=== PATIENT | male | born 1970 | race Caucasian/White ===

== ENCOUNTER 2018-11-17 06:02 | Emergency (ER) | payer OTHER ==
[~2018-11-17] VITALS: Ht 188 cm; Wt 93.0 kg
[~2018-11-17 06:02] MED LIST: AC500T PO; BPR100T GT; CYCL10TA9 PO; ESCT10T PO; HYDR-3720 PO; HYDR1CAP2 PO; METH4TAB PO; MULT1CAP17 PO; NAPR220T76 PO; TRAM-21
[2018-11-17] MEDS ORDERED: ONDANSETRON 4 MG/2 ML (SDV) Z0FRAN IVP ONE (06:45)
[2018-11-17] MEDS ORDERED: FAMOTIDINE 20MG/2ML IV (PEPCID) IVP ONE (06:45)
[2018-11-17] MEDS ORDERED: KETOROLAC 30 MG/ML VIAL IVP ONE (06:45)
--- NOTE | 2018-11-17 06:48 | ED Abdominal Pain ---
General Chief Complaint: Abdominal/GI Problems Stated Complaint: VOMITING Nursing Triage Note: Pt arrived by private vehicle for cc of vomiting and diarrhea with abdominal pain. Pt stated it started around 0300 and he does not believe he has the flu. He stated that he thinks it is his colon. He stated it is hard to breathe. Pt has been vomiting 6-7 times. He stated he had diarrhea before. Sepsis Screen: No Definite Risk Source of Information: Patient, Spouse Exam Limitations: No Limitations History of Present Illness Date Seen by Provider: Nov 17, 2018 Time Seen by Provider: 06:30 Initial Comments Patient presents to ER by private conveyance with his significant other and chief complaint that he was woke up from sleep with some moderate to severe epigastric abdominal pain right down the midline. He felt like it was acid reflux which took some antacids but that did not help. He then took some charcoal gas tablets but that also did not help within the last couple hours she started having vomiting. He says he is vomiting up food that was undigested from yesterday. He's had no fevers chills is not having much nausea right now. She says the pain and discomfort in his epigastric region that radiates down the midline. He has had a back laminectomy but no other abdominal surgeries. No recent trauma. No sick contacts. A little bit of loose stools but this is not unusual for him. He has been having loose stools for years and recently he started working this up with his primary care doctor and has an appointment on the with Dr. Lake to talk about doing some endoscopy. No history of endoscopy, irritable bowel or inflammatory bowel disease. No black tarry stools or history of gastric ulcers that he is aware of. Allergies and Home Medications Allergies Coded Allergies: Penicillins (Unverified Allergy, 06/30/10) Home Medications Cyclobenzaprine Hcl 10 Mg Tablet, 10 MG PO TID, (Reported) Hydrocodone Bit/Acetaminophen 1 Each Tablet, 2 EACH PO Q4H PRN, (Reported) Methylprednisolone 4 Mg/Dose-Pack Tab.ds.pk, 0 PO DIRECTED, (Reported) Multivitamins/Minerals 1 Cap Capsule, 1 CAP PO PRN, (Reported) Patient Home Medication List Home Medication List Reviewed: Yes Review of Systems Review of Systems Constitutional: No chills, No malaise EENTM: No Blurred Vision, No Double Vision Respiratory: Denies Cough, Denies Shortness of Air Cardiovascular: Denies Chest Pain, Denies Lightheadedness Gastrointestinal: See HPI, Abdominal Pain; Denies Constipated; Diarrhea, Nausea , Vomiting Genitourinary: Denies Burning, Denies Discharge Musculoskeletal: No back pain, No joint pain Skin: No pruritus, No rash Past Wbbwkvw-Yqaxcx-Hbbdbh Hx Patient Social History Alcohol Use: Occasionally Uses Recreational Drug Use: No Smoking Status: Never a Smoker 2nd Hand Smoke Exposure: No Recent Foreign Travel: No Contact w/Someone Who Travel: No Recent Infectious Disease Expo: No Recent Hopitalizations: No Physical Abuse: No Sexual Abuse: No Mistreated: No Fear: No Seasonal Allergies Seasonal Allergies: No Past Medical History Surgeries: Yes (laminectomy/discectomy) Respiratory: No Cardiac: No Neurological: No Reproductive Disorders: No Gastrointestinal: Yes (verbalizes IBS) Musculoskeletal: No Endocrine: No Psychosocial: No Blood Disorders: No Physical Exam Vital Signs Vital Signs - First Documented 11/17/18 06:19 Temp 97.2 Pulse 55 Resp 33 B/P (MAP) 172/106 (128) Pulse Ox 100 O2 Delivery Room Air Capillary Refill : Less Than 3 Seconds Height/Weight/BMI Height: 6'2.00" Weight: 205lbs. 0oz. 92.943031ab; BMI Method:Stated General Appearance: WD/WN, no apparent distress HEENT: PERRL/EOMI, normal ENT inspection, pharynx normal (mmm) Respiratory: no respiratory distress, no accessory muscle use Cardiovascular: normal peripheral pulses, regular rate, rhythm Peripheral Pulses: 2+ Radial Pulses (R), 2+ Radial Pulses (L) Gastrointestinal: normal bowel sounds, soft, no organomegaly, other (negative for Ramos sign or McBurney's point tenderness. Epigastric and periumbilical discomfort to palpation. No organomegaly.) Neurologic/Psychiatric: alert, oriented x 3 Skin: normal color, warm/dry Progress/Results/Core Measures Results/Orders Lab Results Laboratory Tests Test 11/17/18 06:19 Range/Units White Blood Count 7.5 4.3-11.0 10^3/uL Red Blood Count 4.80 4.35-5.85 10^6/uL Hemoglobin 14.2 13.3-17.7 G/DL Hematocrit 41 40-54 % Mean Corpuscular Volume 85 80-99 FL Mean Corpuscular Hemoglobin 30 25-34 PG Mean Corpuscular Hemoglobin Concent 35 32-36 G/DL Red Cell Distribution Width 12.7 10.0-14.5 % Platelet Count 394 130-400 10^3/uL Mean Platelet Volume 9.1 7.4-10.4 FL Neutrophils (%) (Auto) 44 42-75 % Lymphocytes (%) (Auto) 48 H 12-44 % Monocytes (%) (Auto) 6 0-12 % Eosinophils (%) (Auto) 1 0-10 % Basophils (%) (Auto) 0 0-10 % Neutrophils # (Auto) 3.3 1.8-7.8 X 10^3 Lymphocytes # (Auto) 3.6 1.0-4.0 X 10^3 Monocytes # (Auto) 0.5 0.0-1.0 X 10^3 Eosinophils # (Auto) 0.1 0.0-0.3 10^3/uL Basophils # (Auto) 0.0 0.0-0.1 10^3/uL Sodium Level 139 135-145 MMOL/L Potassium Level 4.3 3.6-5.0 MMOL/L Chloride Level 105 98-107 MMOL/L Carbon Dioxide Level 23 21-32 MMOL/L Anion Gap 11 5-14 MMOL/L Blood Urea Nitrogen 19 H 7-18 MG/DL Creatinine 1.18 0.60-1.30 MG/DL Estimat Glomerular Filtration Rate > 60 BUN/Creatinine Ratio 16 Glucose Level 141 H 70-105 MG/DL Calcium Level 9.7 8.5-10.1 MG/DL Corrected Calcium 9.4 8.5-10.1 MG/DL Magnesium Level 2.3 1.8-2.4 MG/DL Total Bilirubin 0.6 0.1-1.0 MG/DL Aspartate Amino Transf (AST/SGOT) 26 5-34 U/L Alanine Aminotransferase (ALT/SGPT) 27 0-55 U/L Alkaline Phosphatase 58 40-136 U/L C-Reactive Protein High Sensitivity 0.12 0.00-0.50 MG/DL Total Protein 7.5 6.4-8.2 GM/DL Albumin 4.4 3.2-4.5 GM/DL Micro Results Microbiology 11/17/18 Influenza Types A,B Antigen (LAURI) - Final, Complete My Orders Orders - QUE VILLASENOR Cbc With Automated Diff (11/17/18 06:35) Comprehensive Metabolic Panel (11/17/18 06:35) Magnesium (11/17/18 06:35) Influenza A And B Antigens (11/17/18 06:35) Abdomen/Kub 1view (11/17/18 06:35) Hs C Reactive Protein (11/17/18 06:35) Ketorolac Injection (Toradol Injection) (11/17/18 06:45) Famotidine Injection (Pepcid Injection) (11/17/18 06:45) Ondansetron Injection (Zofran Injectio (11/17/18 06:45) Medications Given in ED Current Medications Medications Dose Ordered Sig/Jose Route Start Time Stop Time Status Last Admin Dose Admin Famotidine 20 mg ONCE ONCE IVP 11/17/18 06:45 11/17/18 06:46 DC 11/17/18 06:57 20 MG Ketorolac Tromethamine 30 mg ONCE ONCE IVP 11/17/18 06:45 11/17/18 06:46 DC 11/17/18 06:57 30 MG Ondansetron HCl 4 mg ONCE ONCE IVP 11/17/18 06:45 11/17/18 06:46 DC 11/17/18 06:57 4 MG Vital Signs/I&O 11/17/18 06:19 Temp 97.2 Pulse 55 Resp 33 B/P (MAP) 172/106 (128) Pulse Ox 100 O2 Delivery Room Air Blood Pressure Mean: 128 Progress Progress Note #1: Time: 06:48 Progress Note Suspect gastroenteritis viral versus gastritis versus PUD versus possible ileus. We'll obtain a flat plate film, labs. We have offered some NSAIDs, antacids IV and Zofran for symptom relief. Recommended his symptoms under control or if his labs are unrevealing and no further CT would be necessary and have be reasonable for him to follow up get his endoscopy done. Progress Note #2: Time: 09:10 Progress Note The patient's symptoms have abated. He's feeling better labs are okay vitals are okay his belly is not acute surgically. We'll allow him to go home and take care of his gastritis with antacids and keep his follow-up in a week and a half with Dr. Lake. Diagnostic Imaging Diagonstic Imaging: Xray Plain Films/CT/US/NM/MRI: abdomen (KUB 1 view) Comments [facility], [place] NAME: [facility] REC#: [id number] PT STATUS: REG ER : 1970 PHYSICIAN: QUE VILLASENOR MD ADMIT DATE: 11/17/18/ER Draft Date of Exam:11/17/18 ABDOMEN/KUB 1VIEW PATIENT HISTORY: Vomiting and diarrhea with abdominal pain. TECHNIQUE: Frontal view of the abdomen COMPARISON: None FINDINGS: Bowel loops are nondistended without evidence of obstruction. No large collection of free air seen. There is a small amount of stool seen in the colon. No acute osseous abnormality is seen. Phleboliths are noted in the pelvis. IMPRESSION: No evidence of bowel obstruction or large collection of free air. Dictated on workstation # [id number] Dict: 11/17/18814 Trans: 11/17/18817 [facility] [id number] Interpreted by: GINA HILL MD Electronically signed by: Reviewed: Reviewed by Me Departure Impression Primary Impression: Gastritis Qualified Codes: K29.70 - Gastritis, unspecified, without bleeding Disposition: HOME, SELF-CARE Condition: Stable Departure-Patient Inst. Decision time for Depature: 09:10 Referrals: RADHA SCHULTE DO (PCP/Family) Primary Care Physician Patient Instructions: Gastritis (DC) Add. Discharge Instructions: You need to complete your endoscopy outpatient with Dr. Lake as per your previous plan. Drink plenty of fluids and avoid high acidic or spicy foods. Start taking an antacid daily such as omeprazole 40 mg a day or Zantac/Pepcid twice a day. If you have nausea feeling like you are going to throw up then take one tablet of Zofran every 6 hours as needed. If you have pain you can use Tylenol 1000 g every 8 hours and/or ibuprofen 800 mg 8 hours. All discharge instructions reviewed with patient and/or family. Voiced understanding. Scripts Ondansetron (Ondansetron Odt) 4 Mg Tab.rapdis 4 MG PO Q6H PRN for NAUSEA/VOMITING, #12 TAB 0 Refills Prov: QUE VILLASENOR 11/17/18 QUE VILLASENOR Nov 17, 2018 06:48
[2018-11-17 06:53] LABS: BASOPHILS % (AUTO) 0 % (0-10); EOSINOPHILS # (AUTO) 0.1 10^3/uL (0.0-0.3); EOSINOPHILS % (AUTO) 1 % (0-10); HEMATOCRIT 41 % (40-54); HEMOGLOBIN 14.2 G/DL (13.3-17.7); LYMPHOCYTES # (AUTO) 3.6 X 10^3 (1.0-4.0); LYMPHOCYTES % (AUTO) 48 % (12-44); MEAN CORPUSCULAR HEMOGLOBIN 30 PG (25-34); MEAN CORPUSCULAR HGB CONC 35 G/DL (32-36); MEAN CORPUSCULAR VOLUME 85 FL (80-99); MEAN PLATELET VOLUME 9.1 FL (7.4-10.4); MONOCYTES # (AUTO) 0.5 X 10^3 (0.0-1.0); MONOCYTES % (AUTO) 6 % (0-12); NEUTROPHILS # (AUTO) 3.3 X 10^3 (1.8-7.8); NEUTROPHILS % (AUTO) 44 % (42-75); PLATELET COUNT 394 10^3/uL (130-400); RED CELL DISTRIBUTION WIDTH 12.7 % (10.0-14.5); WHITE BLOOD COUNT 7.5 10^3/uL (4.3-11.0)
[2018-11-17 07:05] LABS: ALANINE AMINOTRANSFERASE 27 U/L (0-55); ALBUMIN 4.4 GM/DL (3.2-4.5); ALKALINE PHOSPHATASE 58 U/L (40-136); BILIRUBIN,TOTAL 0.6 MG/DL (0.1-1.0); BUN/CREATININE RATIO 16; CALCIUM 9.7 MG/DL (8.5-10.1); CARBON DIOXIDE 23 MMOL/L (21-32); CHLORIDE 105 MMOL/L (98-107); CREATININE SERUM 1.18 MG/DL (0.60-1.30); GFR ESTIMATED > 60; GLUCOSE 141 MG/DL (70-105); MAGNESIUM 2.3 MG/DL (1.8-2.4); POTASSIUM 4.3 MMOL/L (3.6-5.0); SODIUM 139 MMOL/L (135-145); TOTAL PROTEIN 7.5 GM/DL (6.4-8.2)
--- NOTE | 2018-11-17 07:06 | NUR ---
Report was given to Haley at this time. Care was transferred.
--- OUTSIDE RECORDS SUMMARY | 2018-11-17 07:48 | XMS REPORT | Continuity of Care Document ---
Author Author [facility] Organization [facility] Address Unknown Phone Unavailable Allergies Active Description Code Type Severity Reaction Onset Reported/Identified Relationship to Patient Clinical Status Yes Penicillins [id number] Drug Allergy Unknown N/A 06/30/2010 Medications There is no data. Problems Date Dx Coded Attending Type Code Diagnosis Diagnosed By 11/29/2015 RADHA SALINAS DO Ot M51.36 06/24/2016 RADHA SALINAS DO Ot M51.36 OTHER INTERVERTEBRAL DISC DEGENERATION, Procedures There is no data. Results Test Result Range Comprehensive metabolic panel - 11/17/18 06:19 Serum or plasma sodium measurement (moles/volume) 139 mmol/L 135-145 Serum or plasma potassium measurement (moles/volume) 4.3 mmol/L 3.6-5.0 Serum or plasma chloride measurement (moles/volume) 105 mmol/L 98-107 Carbon dioxide 23 mmol/L 21-32 Serum or plasma anion gap determination (moles/volume) 11 mmol/L 5-14 Serum or plasma urea nitrogen measurement (mass/volume) 19 mg/dL 7-18 Serum or plasma creatinine measurement (mass/volume) 1.18 mg/dL 0.60-1.30 Serum or plasma urea nitrogen/creatinine mass ratio 16 NRG Serum or plasma creatinine measurement with calculation of estimated glomerular filtration rate > NRG Serum or plasma glucose measurement (mass/volume) 141 mg/dL 70-105 Serum or plasma calcium measurement (mass/volume) 9.7 mg/dL 8.5-10.1 Serum or plasma total bilirubin measurement (mass/volume) 0.6 mg/dL 0.1-1.0 Serum or plasma alkaline phosphatase measurement (enzymatic activity/volume) 58 U/L 40-136 Serum or plasma aspartate aminotransferase measurement (enzymatic activity/ volume) 26 U/L 5-34 Serum or plasma alanine aminotransferase measurement (enzymatic activity/volume ) 27 U/L 0-55 Serum or plasma protein measurement (mass/volume) 7.5 g/dL 6.4-8.2 Serum or plasma albumin measurement (mass/volume) 4.4 g/dL 3.2-4.5 CALCIUM CORRECTED 9.4 mg/dL 8.5-10.1 Magnesium - 11/17/18 06:19 Magnesium 2.3 mg/dL 1.8-2.4 Serum or plasma C reactive protein measurement (mass/volume) - 11/17/18 06:19 Serum or plasma C reactive protein measurement (mass/volume) 0.12 mg /dL 0.00-0.50 Complete blood count (CBC) with automated white blood cell (WBC) differential - 11/17/18 06:19 Blood leukocytes automated count (number/volume) 7.5 10*3/uL 4.3-11.0 Blood erythrocytes automated count (number/volume) 4.80 10*6/uL 4.35-5.85 Venous blood hemoglobin measurement (mass/volume) 14.2 g/dL 13.3-17.7 Blood hematocrit (volume fraction) 41 % 40-54 Automated erythrocyte mean corpuscular volume 85 [foz_us] 80-99 Automated erythrocyte mean corpuscular hemoglobin (mass per erythrocyte) 30 pg 25-34 Automated erythrocyte mean corpuscular hemoglobin concentration measurement ( mass/volume) 35 g/dL 32-36 Automated erythrocyte distribution width ratio 12.7 % 10.0-14.5 Automated blood platelet count (count/volume) 394 10*3/uL 130-400 Automated blood platelet mean volume measurement 9.1 [foz_us] 7.4-10.4 Automated blood neutrophils/100 leukocytes 44 % 42-75 Automated blood lymphocytes/100 leukocytes 48 % 12-44 Blood monocytes/100 leukocytes 6 % 0-12 Automated blood eosinophils/100 leukocytes 1 % 0-10 Automated blood basophils/100 leukocytes 0 % 0-10 Blood neutrophils automated count (number/volume) 3.3 10*3 1.8-7.8 Blood lymphocytes automated count (number/volume) 3.6 10*3 1.0-4.0 Blood monocytes automated count (number/volume) 0.5 10*3 0.0-1.0 Automated eosinophil count 0.1 10*3/uL 0.0-0.3 Automated blood basophil count (count/volume) 0.0 10*3/uL 0.0-0.1 Influenza virus A and B antigen detection - 11/17/18 06:21 FLU RESULT NEGATIVE FOR INFLUENZA A AND B ANTIGENS BY IA NRG Encounters ACCT No. Visit Date/Time Discharge Status Pt. Type Provider Facility Loc./Unit Complaint [id number] 11/17/2015 08:55:00 11/17/2015 23:59:59 CLS Outpatient RADHA SALINAS DO [facility] RAD LUMBAR DISC DISEASE [id number] 10/20/2013 09:43:00 10/20/2013 23:59:59 CLS Outpatient [id number] 11/17/2018 06:04:00 ACT Emergency JACKLYN DUARTE, QUE [place] [facility] ER VOMITING 05/25/16 11/11/2018 16:24:05 11/11/2018 23:59:59 CLS Outpatient Radha Salinas
--- NOTE | 2018-11-17 07:51 | NUR ---
INTRODUCED SELF TO PT. PT REQUEST HOT TEA. NOTIFIED DR DID NOT WANT HIM TO HAVE ANYTHING UNTIL THE RADIOLOGY REPORT
--- NOTE | 2018-11-17 08:18 | Diagnostic Imaging Report ---
PATIENT HISTORY: Vomiting and diarrhea with abdominal pain. TECHNIQUE: Frontal view of the abdomen COMPARISON: None FINDINGS: Bowel loops are nondistended without evidence of obstruction. No large collection of free air seen. There is a small amount of stool seen in the colon. No acute osseous abnormality is seen. Phleboliths are noted in the pelvis. IMPRESSION: No evidence of bowel obstruction or large collection of free air. Dictated by: Dictated on workstation # [id number]
--- NOTE | 2018-11-17 09:03 | NUR ---
NOTIFIED WE WERE WAITING ON DR TO LOOK AT RESULTS. WARM BLANKETS GIVEN TO HIM AND FAMILY. DENIES NEEDS AT THIS TIME
[2018-11-17] MEDS ORDERED: ONDA4TAB11 PO (09:12)
[2018-11-17 09:20] VITALS: BP 109/83
== END 2018-11-17 09:20 | disposition home or self-care (01) ==
LOC: EDUNIT# 06:02 → ER 06:04
DX: K29.70 Gastritis, unspecified, without bleeding (principal); K58.9 Irritable bowel syndrome, unspecified; Z88.0 Allergy status to penicillin; Z79.52 Long term (current) use of systemic steroids; Z98.1 Arthrodesis status
CPT/HCPCS: 36415; 74018; 80053; 83735; 85025; 86141; 87804

== ENCOUNTER → 2018-12-08 | Outpatient (CLI) | payer OTHER ==
[~2018-12-08] MED LIST changes: +ONDA4TAB11 PO
== END | disposition home or self-care (01) ==
LOC: PREOP 06:21
PROVIDERS: ATTEND Internal Medicine
DX: Z01.818 Encounter for other preprocedural examination (principal)

== ENCOUNTER 2018-12-11 08:01 | Day surgery (SDC) | payer OTHER ==
--- NOTE | 2018-12-07 17:26 | HISTORY AND PHYSICAL ---
DATE OF SERVICE: PANENDOSCOPY HISTORY AND PHYSICAL HISTORY OF PRESENT ILLNESS: The patient is a 48-year-old white male who referred by Dr. Salinas for diagnostic EGD and screening colonoscopy. The patient has had several episodes of severe precordial chest discomfort radiate through to his back with sensation of dysphagia. It last occurred on the 15th of this month with pain severe enough that he presented to the emergency room. Blood testing and EKG evaluation were unremarkable. He did receive a GI cocktail with some improvement in his symptoms. Blood testing including a CBC, chemistry panel and CRP levels were unremarkable except for a mildly elevated nonfasting sugar of 141. Hemoglobin was 14.2 with a white count of 7,000 and a platelet count of 394,000. The patient has had several other episodes that some of which have occurred around eating. He stated that he had pizza that night, but he did not feel as though at that episode it was sticking at that time, but reports he brought up what he felt to be a pizza that was not terribly digested some 3 or 4 hours later. He has had no weight loss. Denies melena, bright red blood per rectum. He has had a long history of postprandial defecation, certain foods are worse especially onions the first time it happened was 15 years ago after having a bunion blossom at a local restaurant. He is not aware of any family history for inflammatory bowel disease and he has never noted any blood in his stool. He reports that his weight has been stable. PAST MEDICAL HISTORY: He reports is unremarkable. He is not taking any regular medication. PAST SURGICAL HISTORY: He had an L5 diskectomy in 2009, which has controlled his back pain symptoms. FAMILY HISTORY: Father is living at the age of 74. No known health problems. Mother living at age 72 of symptoms, it sounds suspicious for irritable bowel syndrome. No family history for colon cancer, polyps or inflammatory bowel disease that he is aware of. 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 He has no past smoking history with only occasional social alcohol intake. He has had no recent travel history. REVIEW OF SYSTEMS: CONSTITUTIONAL: No night sweats, chills, fever, malaise reported. RESPIRATORY: Denies cough, shortness of breath. CARDIOVASCULAR: He has had no chest pain since his emergency room visits. He has had no palpitations, syncope, dyspnea on exertion or at rest. GASTROINTESTINAL: As per HPI. GENITOURINARY: He denies discharge, increase in urinary frequency or flank pain. PHYSICAL EXAMINATION: GENERAL: Reveals white male who appears to be in no acute distress. VITAL SIGNS: Weight is 213.4 pounds, initial blood pressure 150/100, at the end of the interview 130/86. HEENT: Unremarkable. He is a Mallampati class 1 oropharyngeal configuration. No erythema is noted. NECK: Revealed no JVD, adenopathy or bruits. CHEST: Clear to auscultation. CARDIOVASCULAR: Reveals a regular rate and rhythm without murmur, S3 or S4. ABDOMEN: Soft, supple without mass, organomegaly or tenderness. EXTREMITIES: Reveal no cyanosis, clubbing or edema. ASSESSMENT AND PLAN: The patient was set up for screening colonoscopy and diagnostic EGD due to dysphagia and chest pain on 12/11. Prep instructions with Suprep kit were given and questions were answered. Electronic medical record was reviewed. Forty-five minutes of my personal care time has been spent and in another 10 minutes of staff time going over prep instructions and answering questions. I thank you for the referral of this pleasant gentleman. Job ID: [id number] DocumentID: [id number] Dictated Date: 12/02/2018 17:17:27 Auto Former Machine Operator Date: 12/02/2018 18:10:29 Dictated By: LAMAR MORALES MD [facility]
[~2018-12-11] VITALS: Ht 188 cm; Wt 93.0 kg
[2018-12-11 08:10] VITALS: BP 131/80
[2018-12-11] MEDS ORDERED: D5 LR IV SOLUTION 1,000 ML IV STA (08:13)
[2018-12-11] MEDS ORDERED: HURRICAINE EXT TUBE (BENZOCAINE) XX PRN (08:15)
[2018-12-11] MEDS ORDERED: LIDOCAINE JELLY 2% 6 ML SYRINGE MM PRN (08:15)
[2018-12-11] MEDS ORDERED: MIDAZOLAM 2 MG/2 ML (VERSED) VIAL IVP ONE (08:15)
[2018-12-11] MEDS ORDERED: fentaNYL INJECTION 100 MCG/2 ML AMP IVP ONE (08:15)
[2018-12-11] MEDS ORDERED: D5 LR IV SOLUTION 1,000 ML IV ONE (08:32)
--- NOTE | 2018-12-11 08:51 | Pre-Op Note & Conscious Sedat ---
Pre-Operative Progress Note H&P Reviewed The H&P was reviewed, patient examined and no changes noted. Date H&P Reviewed: Dec 11, 2018 Time H&P Reviewed: 07:45 Conscious Sedation Pre-Proced ASA Score 2 For ASA 3 and 4: Consider anesthesia and medical clearance. Also, for patients with a history of failed moderate sedation consider anesthesia. Airway Lungs Heart ASA score ASA 1: a normal healthy patient ASA 2: a patient with a mild systemic disease (mid diabetes, controlled hypertension, obesity ASA 3: a patient with a severe systemic disease that limits activity (angina , COPD, prior Myocardial infarction) ASA 4: a patient with an incapacitating disease that is a constant threat to life (CHF, renal failure) ASA 5: a moribund patient not expected to survive 24 hrs. (ruptured aneurysm) ASA 6: a declared brain- patient whose organs are being harvested. For emergent operations, add the letter E after the classification Mallampati Classification Grade 1 Sedation Plan Analgesia, Amnesia, Plan communicated to team members, Discussed options with patient/fam, Discussed risks with patient/fam The patient is an appropriate candidate to undergo the planned procedure, sedation, and anesthesia. The patient immediately re-assessed prior to indication. LAMAR MORALES MD Dec 11, 2018 08:51
[2018-12-11] MEDS ORDERED: MIDAZOLAM 2 MG/2 ML (VERSED) VIAL ONE ×3 (09:03)
[2018-12-11] MEDS ORDERED: fentaNYL INJECTION 100 MCG/2 ML AMP ONE ×2 (09:04)
[2018-12-11] MEDS ORDERED: LIDOCAINE JELLY 2% 6 ML SYRINGE ONE (09:04)
[2018-12-11] MEDS ORDERED: HURRICAINE EXT TUBE (BENZOCAINE) ONE (09:04)
[2018-12-11] MEDS ORDERED: SIMETHICONE 40 MG/0.6 ML (MYLICON DROPS) 30 ML BTL ONE (09:37)
[2018-12-11] MEDS ORDERED: SIMETHICONE 40 MG/0.6 ML (MYLICON DROPS) 30 ML BTL PO PRN ×2 (09:45→12:15)
[2018-12-11 10:25] VITALS: BP 129/80
[2018-12-11 10:55] VITALS: BP 121/82
--- OUTSIDE RECORDS SUMMARY | 2018-12-11 12:27 | XMS REPORT | Continuity of Care Document ---
Author Author [facility] Organization [facility] Address Unknown Phone Unavailable Allergies Active Description Code Type Severity Reaction Onset Reported/Identified Relationship to Patient Clinical Status Yes Penicillins [id number] Drug Allergy Unknown N/A 06/30/2010 Medications There is no data. Problems Date Dx Coded Attending Type Code Diagnosis Diagnosed By 11/29/2015 RADHA SALINAS DO Ot M51.36 06/24/2016 RADHA SALINAS DO Ot M51.36 OTHER INTERVERTEBRAL DISC DEGENERATION, 11/17/2018 QUE VILLASENOR MD Ot K29.70 GASTRITIS, UNSPECIFIED, WITHOUT BLEEDING 11/17/2018 QUE VILLASENOR MD Ot K58.9 IRRITABLE BOWEL SYNDROME WITHOUT DIARRHE 11/17/2018 QUE VILLASENOR MD Ot R10.13 EPIGASTRIC PAIN 11/17/2018 QUE VILLASENOR MD Ot Z79.52 CORRECTION (CURRENT) USE OF SYSTEMIC STER 11/17/2018 QUE VILLASENOR MD Ot Z88.0 ALLERGY STATUS TO PENICILLIN 11/17/2018 QUE VILLASENOR MD Ot Z98.1 ARTHRODESIS STATUS 11/19/2018 QUE VILLASENOR MD Ot K29.70 GASTRITIS, UNSPECIFIED, WITHOUT BLEEDING 11/19/2018 QUE VILLASENOR MD Ot K58.9 IRRITABLE BOWEL SYNDROME WITHOUT DIARRHE 11/19/2018 QUE VILLASENOR MD Ot R10.13 EPIGASTRIC PAIN 11/19/2018 QUE VILLASENOR MD Ot Z79.52 CORRECTION (CURRENT) USE OF SYSTEMIC STER 11/19/2018 QUE VILLASENOR MD Ot Z88.0 ALLERGY STATUS TO PENICILLIN 11/19/2018 QUE VILLASENOR MD Ot Z98.1 ARTHRODESIS STATUS 11/23/2018 QUE VILLASENOR MD Ot K29.70 GASTRITIS, UNSPECIFIED, WITHOUT BLEEDING 11/23/2018 QUE VILLASENOR MD Ot K58.9 IRRITABLE BOWEL SYNDROME WITHOUT DIARRHE 11/23/2018 QUE VILLASENOR MD Ot R10.13 EPIGASTRIC PAIN 11/23/2018 QUE VILLASENOR MD Ot Z79.52 CORRECTION (CURRENT) USE OF SYSTEMIC STER 11/23/2018 QUE VILLASENOR MD Ot Z88.0 ALLERGY STATUS TO PENICILLIN 11/23/2018 QUE VILLASENOR MD, Ot Z98.1 ARTHRODESIS STATUS 12/07/2018 RADHA SALINAS DO, Ot M51.36 OTHER INTERVERTEBRAL DISC DEGENERATION, 12/09/2018 LAMAR MORALES MD, Ot Z01.818 ENCOUNTER FOR OTHER PREPROCEDURAL EXAMIN 12/11/2018 RADHA SALINAS DO, Ot M51.36 OTHER INTERVERTEBRAL DISC DEGENERATION, 12/11/2018 LAMAR MORALES MD, Ot Z01.818 ENCOUNTER FOR OTHER PREPROCEDURAL EXAMIN Procedures There is no data. Results Test [...] Status Pt. Type Provider Facility Loc./Unit Complaint [id number] 12/08/2018 06:21:00 12/08/2018 23:59:59 CLS Outpatient LAMAR MORALES MD [facility] PREOP COLONOSCOPY/EGD [id number] 11/17/2018 06:04:00 11/17/2018 09:20:00 DIS Emergency QUE VILLASENOR MD [facility] ER VOMITING [id number] 11/17/2015 08:55:00 11/17/2015 23:59:59 CLS Outpatient RADHA SALINAS DO [facility] RAD LUMBAR DISC DISEASE [id number] 10/20/2013 09:43:00 10/20/2013 23:59:59 CLS Outpatient [id number] 12/11/2018 08:01:00 ACT Outpatient LAMAR MORALES MD [facility] ENDO SCREENING/DYSPHAGIA 05/25/16 11/11/2018 16:24:05 11/11/2018 23:59:59 CLS Outpatient Radha Salinas
--- NOTE | 2018-12-11 21:52 | OPERATIVE REPORT ---
DATE OF SERVICE: PANENDOSCOPY SUMMARY INDICATION FOR THE PROCEDURE: The patient underwent screening colonoscopy and diagnostic EGD due to history of intermittent dysphagia. The patient was placed in the left lateral decubitus position. Prior to undergoing colonoscopy, digital rectal evaluation was performed. Anal sphincter tone was normal. The prostate was normal in size, anodular, nontender to digital inspection. No abnormalities, no additional inspection of anal canal or distal rectal vault. The colonoscope was then inserted into the rectum under direct visualization, advanced to cecum. The cecum was identified by identification of the ileocecal valve and cecal strap. Photographic documentation was obtained. Careful inspection was made as the colonoscope was withdrawn. The quality of prep was good. FINDINGS: There was no evidence for internal or external hemorrhoids. Present in the rectosigmoid junction was a diminutive hyperplastic appearing polyp. It was photographed and biopsied and ablated and submitted for histopathology. Mild diverticular disease confined to the sigmoid colon was present with no evidence for diverticulitis. No other sigmoid colonic abnormalities were appreciated. The descending colon, splenic flexure, transverse colon, hepatic flexure, ascending colon and cecum were unremarkable. ASSESSMENT: 1. Mild diverticular disease confined to the sigmoid colon was present without evidence for diverticulitis. 2. One diminutive hyperplastic appearing polyp was removed via hot forceps from the rectosigmoid junction. As long as there is no surprise on histopathology report, would advocate consideration for repeat screening colonoscopy in 10 years as long as there continues to be no known family history for colon cancer. We then proceeded with EGD evaluation. The endoscope was inserted in the oral cavity and under direct visualization, esophagus was intubated. The endoscope was passed down the esophagus through the stomach and second portion of the duodenum. Careful inspection was made as the endoscope was withdrawn. The patient tolerated the procedure well. FINDINGS: The esophagus was unremarkable. There is no evidence for rings, webs, strictures, Rodriguez's change or extrinsic compression and there was no furrowing to suggest eosinophilic esophagitis. A biopsy was obtained from the distal esophagus for histopathology as well as eosinophilic count evaluation. There was no evidence for hiatal hernia formation. The cardia, fundus and antrum of the stomach were unremarkable. The pylorus, pyloric channel, the duodenal bulb and second portion of the duodenum were unremarkable as well. ASSESSMENT: Normal EGD suggesting intermittent dysphagia secondary to esophageal spasm. While he did not have any visible findings to suggest eosinophilic esophagitis, a biopsy was obtained from the distal esophagus for evaluation with further recommendations to follow if abnormalities are noted. Otherwise, the patient was reassured. I thank you for the referral of this pleasant gentleman. Job ID: [id number] DocumentID: [id number] Dictated Date: 12/11/2018 11:08:33 Senior Bioinformatics Scientist Date: 12/11/2018 21:52:19 Dictated By: LAMAR MORALES MD
== END 2018-12-11 11:30 | disposition home or self-care (01) ==
LOC: ENDO 08:01
PROVIDERS: ATTEND Internal Medicine
DX: Z12.11 Encounter for screening for malignant neoplasm of colon (principal); K63.5 Polyp of colon; K57.30 Diverticulosis of large intestine without perforation or abscess without bleeding; K22.4 Dyskinesia of esophagus; K29.50 Unspecified chronic gastritis without bleeding

== ENCOUNTER 2021-02-23 08:26 | Outpatient (RCR) | payer OTHER | END 2021-04-05 | disposition home or self-care (01) | PROVIDERS: ATTEND Family Medicine | DX: M54.5 Low back pain (principal) ==

== ENCOUNTER → 2022-07-23 | Outpatient (CLI) | payer OTHER ==
--- NOTE | 2022-07-23 17:58 | Diagnostic Imaging Report ---
EXAMINATION: Cervical spine 2 or 3 views HISTORY: SHOULDER PAIN, CERVICAL RADICULOPATHY COMPARISON: None available. FINDINGS: Vertebral body heights and alignment are normal. Odontoid process is intact. Minimal multilevel cervical spondylosis. Mild multilevel facet hypertrophy without perched facets. Prevertebral soft tissues are normal. IMPRESSION: Degenerative changes of the cervical spine without acute osseous abnormality. Dictated by: Dictated on workstation # [id number]
--- NOTE | 2022-07-23 18:16 | Diagnostic Imaging Report ---
INDICATION: Right shoulder pain AP, oblique and transscapular views of right shoulder are obtained. No acute fracture or malalignment is identified. May be mild spurring along the acromion. This could result in underlying impingement. There is no evidence of lytic or sclerotic lesion. IMPRESSION: Questionable acromial spurring. This could result in underlying rotator cuff impingement. Otherwise, no acute abnormality is identified. Consideration could be given to cross-sectional imaging if warranted. Dictated by: Dictated on workstation # [id number]
== END ==
LOC: RAD 15:02
PROVIDERS: ATTEND Family Medicine
DX: M47.22 Other spondylosis with radiculopathy, cervical region (principal)
CPT/HCPCS: 72040; 73030